=== PATIENT | female | born 1940 | race Caucasian/White ===

== ENCOUNTER 2017-05-08 00:05 | Inpatient (IN) | payer OTHER ==
[~2017-05-08] VITALS: Ht 162.6 cm; Wt 65.4 kg
[2017-05-08 00:39] LABS: HEMATOCRIT 37.9 % (36.0-46.0); HEMOGLOBIN 12.7 G/DL (11.9-15.5); MCHC 33.5 G/DL (30.0-36.0); MCV 86.5 FL (83-99); PLATELET COUNT 282 K/uL (156-360); RBC DIS.WIDTH-CV 13.2 % (11.8-14.6); RBC DIS.WIDTH-SD 41.3 % (39-53); RED BLOOD COUNT 4.38 M/uL (3.80-5.20); WHITE BLOOD COUNT 13.2 K/uL (4.1-10.2)
[2017-05-08 00:46] LABS: ALBUMIN 4.2 g/dL (3.2-4.8); CHLORIDE 101 mEq/L (99-109); POTASSIUM 4.2 mEq/L (3.7-5.4); SODIUM 135 mEq/L (136-147)
[2017-05-08 00:49] LABS: GLUCOSE 155 mg/dL (70-99); TOTAL PROTEIN 7.5 g/dL (6.4-8.3)
[2017-05-08 00:51] LABS: TOTAL BILIRUBIN 0.5 mg/dL (0.0-1.0)
[2017-05-08 00:52] LABS: ALKALINE PHOSPHATASE 89 IU/L (3-129); GFR ESTIMATE (CALCULATED) 57 mL/min/
[2017-05-08 00:53] LABS: UREA NITROGEN (BUN) 19 mg/dL (9-23)
[2017-05-08 00:54] LABS: AST (GOT) 22 IU/L (2-34)
[2017-05-08 00:55] LABS: ALT (GPT) 17 IU/L (3-49)
[2017-05-08 00:56] LABS: LIPASE 21 U/L (1.0-51.0)
[2017-05-08 00:58] LABS: TROP-I INTERPRETATION NEGATIVE; TROPONIN-I < 0.01 ng/mL (0.0-0.30)
[2017-05-08 02:24] LABS: APPEARANCE SL.HAZY ((CLEAR)); BILIRUBIN NEGATIVE; BLOOD NEGATIVE; COLOR YELLOW ((YELLOW)); GLUCOSE (STRIP) NEGATIVE; KETONES NEGATIVE; LEUKOCYTES MODERATE; NITRITE NEGATIVE; PROTEIN (STRIP) NEGATIVE; SPECIFIC GRAVITY 1.041 (1.000-1.030); UROBILINOGEN 0.2 MG/DL (0.2-1.0)
[2017-05-08 02:30] LABS: BACTERIA RARE /HPF; EPITHELIAL CELLS RARE /HPF; MUCUS TRACE /LPF; UCUL ADDED? YES; WHITE BLOOD CELLS 15-20 /HPF (0-5)
[2017-05-08 06:19] VITALS: BP 103/65
[2017-05-08 06:56] LABS: Estimated Average Glucose 134 mg/dL (70-123); HEMOGLOBIN A1c (GLYCOHEMOGLOB) 6.3 % HGB (Below 5.7)
[2017-05-08 07:27] VITALS: BP 121/58
[2017-05-08 11:44] VITALS: BP 130/57
[2017-05-08 12:19] LABS: C DIFF TOXIN NEGATIVE (NEGATIVE)
[2017-05-08] MEDS ORDERED: GABAPENTIN100 MG PO (15:40)
[2017-05-08] MEDS ORDERED: TYLENOL PM EX-1 EACH PO (15:41)
[2017-05-08 16:00] VITALS: BP 132/67
[2017-05-08 20:00] VITALS: BP 137/91
[2017-05-09 00:21] VITALS: BP 119/60
[2017-05-09 03:22] VITALS: BP 121/67
[2017-05-09 05:05] LABS: HEMATOCRIT 31.3 % (36.0-46.0); HEMOGLOBIN 10.6 G/DL (11.9-15.5); MCH 29.4 PG (29.0-34.0); MCHC 33.9 G/DL (30.0-36.0); MCV 86.7 FL (83-99); PLATELET COUNT 247 K/uL (156-360); RBC DIS.WIDTH-CV 13.4 % (11.8-14.6); RBC DIS.WIDTH-SD 42.4 % (39-53); RED BLOOD COUNT 3.61 M/uL (3.80-5.20); WHITE BLOOD COUNT 5.2 K/uL (4.1-10.2)
[2017-05-09 05:12] LABS: CHLORIDE 108 mEq/L (99-109); POTASSIUM 3.5 mEq/L (3.7-5.4); SODIUM 134 mEq/L (136-147)
[2017-05-09 05:17] LABS: CREATININE 0.8 mg/dL (0.6-1.3); GFR ESTIMATE (CALCULATED) > 59 mL/min/
[2017-05-09 05:18] LABS: UREA NITROGEN (BUN) 11 mg/dL (9-23)
[2017-05-09 05:23] LABS: GLUCOSE 88 mg/dL (70-99)
[2017-05-09 08:52] VITALS: BP 122/68
[2017-05-09 09:00] LABS: HEMATOCRIT 32.9 % (36.0-46.0); HEMOGLOBIN 10.7 G/DL (11.9-15.5); MCV 87.5 FL (83-99)
[2017-05-09 11:30] VITALS: BP 138/75
[2017-05-09 15:09] VITALS: BP 145/65
[2017-05-09 19:30] VITALS: BP 120/74
[2017-05-10 00:04] VITALS: BP 118/57
[2017-05-10 08:15] VITALS: BP 137/86
[2017-05-10 09:54] LABS: BASOPHIL (%) 0.6 % (0-1); BASOPHIL COUNT 0.1 K/uL (0-0.1); EOSINOPHIL (%) 0.4 % (0-5); HEMATOCRIT 35.8 % (36.0-46.0); HEMOGLOBIN 11.9 G/DL (11.9-15.5); IMMATURE GRANULOCYTE (%) 0.2 % (0.0-0.7); LYMPHOCYTE (%) 14.5 % (15-42); LYMPHOCYTE COUNT 1.2 K/uL (1.0-2.8); MCH 28.1 PG (29.0-34.0); MCHC 33.2 G/DL (30.0-36.0); MCV 84.4 FL (83-99); MONOCYTE COUNT 0.7 K/uL (0-0.8); NEUTROPHIL (%) 76.3 % (45-76); NEUTROPHIL COUNT 6.5 K/uL (1.8-6.4); PLATELET COUNT 278 K/uL (156-360); RBC DIS.WIDTH-CV 13.5 % (11.8-14.6); RBC DIS.WIDTH-SD 41.6 % (39-53); RED BLOOD COUNT 4.24 M/uL (3.80-5.20); WHITE BLOOD COUNT 8.5 K/uL (4.1-10.2)
[2017-05-10 10:09] LABS: CHLORIDE 101 MEQ/L (99-109); POTASSIUM 3.7 MEQ/L (3.7-5.4); SODIUM 137 MEQ/L (136-147)
[2017-05-10 10:14] LABS: CREATININE 0.7 MG/DL (0.6-1.3); GFR ESTIMATE (CALCULATED) > 59 mL/min/; GLUCOSE 106 mg/dL (70-99); UREA NITROGEN (BUN) 9 mg/dL (9-23)
[2017-05-10 11:29] VITALS: BP 111/57
[2017-05-10 15:19] VITALS: BP 109/58
[2017-05-10 19:26] VITALS: BP 132/70
[2017-05-11 00:13] VITALS: BP 126/56
[2017-05-11 03:48] VITALS: BP 112/53
[2017-05-11 08:10] VITALS: BP 131/78
[2017-05-11 11:13] VITALS: BP 129/57
[2017-05-11] MEDS ORDERED: CIPRO500 MG PO (13:36)
[2017-05-11] MEDS ORDERED: FLAGYL500 MG PO (13:36)
== END 2017-05-11 15:23 | disposition home health service (06) | DRG 391 ==
LOC: EME 00:05 → EDOF 05:25 → ENRESERV 05:26 → 5WEST 06:08 → ENPENDDIS 05-11 → 5WEST 05-11 15:23
PROVIDERS: Emergency Medicine; Hospitalist; Internal Medicine; Physician Assistant
DX: A09 Infectious gastroenteritis and colitis, unspecified (principal); J96.01 Acute respiratory failure with hypoxia; N30.00 Acute cystitis without hematuria; E27.8 Other specified disorders of adrenal gland; B34.9 Viral infection, unspecified; G62.9 Polyneuropathy, unspecified; R73.9 Hyperglycemia, unspecified; E86.0 Dehydration; E83.51 Hypocalcemia; E87.6 Hypokalemia; F17.200 Nicotine dependence, unspecified, uncomplicated; D64.9 Anemia, unspecified; Z90.710 Acquired absence of both cervix and uterus; Z92.21 Personal history of antineoplastic chemotherapy; Z92.3 Personal history of irradiation; Z85.118 Personal history of other malignant neoplasm of bronchus and lung
CPT/HCPCS: 71010; 74177; 80048; 80053; 81003; 82272; 83036; 83605; 83690; 84484; 85014; 85018; 85025; 85027; 87040; 87086; 87493; 93005; 94799; 99281; 99285; G0378; J0610; J0696; J0744; J1650; J2405; J7030; J7050; S0030